=== PATIENT | male | born 1965 | race Caucasian/White ===

== ENCOUNTER 2017-06-19 10:27 | Day surgery (SDC) | payer BC ==
[~2017-06-19] VITALS: Ht 182.9 cm; Wt 89.6 kg
== END 2017-06-19 13:00 | disposition home or self-care (01) ==
LOC: ORSCSDS 10:27
PROVIDERS: Internal Medicine Gastroenterology
PROC: 0DBM8ZX Excision of Descending Colon, Via Natural or Artificial Opening Endoscopic, Diagnostic (ICD-10-PCS; principal; 2017-06-19 11:45)
PROC: 0DBK8ZX Excision of Ascending Colon, Via Natural or Artificial Opening Endoscopic, Diagnostic (ICD-10-PCS; principal; 2017-06-19 11:45)
PROC: 0DBL8ZX Excision of Transverse Colon, Via Natural or Artificial Opening Endoscopic, Diagnostic (ICD-10-PCS; principal; 2017-06-19 11:45)
DX: Z12.11 Encounter for screening for malignant neoplasm of colon (principal); D12.2 Benign neoplasm of ascending colon; D12.3 Benign neoplasm of transverse colon; D12.4 Benign neoplasm of descending colon; K64.8 Other hemorrhoids; Z86.010 Personal history of colon polyps
CPT/HCPCS: 88305

== ENCOUNTER → 2017-11-08 | Outpatient (CLI) | payer BC | END | disposition home or self-care (01) | LOC: PLD 10:12 → LAB SHORT 10:12 | DX: D23.39 Other benign neoplasm of skin of other parts of face (principal) | CPT/HCPCS: 88305 ==